=== PATIENT | female | born 1940 | race Asian ===

== ENCOUNTER 2023-01-13 12:50 | Day surgery (SDC) | payer MEDICARE, OTHER, SELFPAY ==
--- NOTE | 2023-01-13 | PATH_ITS ---
[facility] Accession Number: [id number] No. of containers..03 Tissue . 01 Material submitted: . PART A: gastrointestinal site - GASTRIC POLYP PART B: stomach - ANTRUM PART C: rectum - RECTAL POLYP . 01 Diagnosis: A. Stomach, Polyp, Biopsy: Gastric hyperplastic polyp. No evidence of Helicobacter organisms on H/E stain. Negative for intestinal metaplasia. Negative for dysplasia and malignancy. . B. Stomach, Antrum, Biopsy: Antral mucosa with mild chronic gastritis. Negative for Helicobacter by immunohistochemistry. Negative for intestinal metaplasia. Negative for dysplasia and malignancy. . C. Rectum, Polyp, Biopsy: Hyperplastic polyp with features of mucosal prolapse. [facility] 01/19/2023 1856 Local . 01 Electronically signed: . Pat Humphries MD, Pathologist NPI- [id number] . 01 Gross description: . A. Received in formalin, labeled with the patient's name and , designated gastric polyp, and consists of four travis soft tissue fragments ranging from 0.3 cm to 0.7 cm in greatest dimension. Submitted entirely in cassette A1. B. Received in formalin, labeled with the patient's name and , designated antrum, and consists of a single travis soft tissue fragment measuring 0.6 cm in greatest dimension. Submitted entirely in cassette B1. C. Received in formalin, labeled with the patient's name and , designated rectal polyp, and consists of two travis soft tissue fragments measuring 0.2 cm each in greatest dimension. Submitted entirely in cassette C1. ([id number]) /[facility] 01/16/2023 1410 Local . 01 Microscopic: . A. An immunohistochemical stain was performed to evaluate for Helicobacter organisms and is negative. The control stain showed appropriate reactivity. . * This test was developed and its performance characteristics determined by [facility]. It has not been cleared or approved by the U.S. Food and Drug Administration. The FDA has determined that such clearance or approval is not necessary. This test is used for clinical purposes. It should not be regarded as investigational or for research. . 01 Pathologist provided ICD-10: R10.11, K62.1 . 01 CPT . 623137, 015774, 136902, [id number] Specimen Comment: A courtesy copy of this report has been sent to [phone] Performed at: 01 [facility] [address] [place] [address], [place], [place] [id number] MD Koby Powell MD Phone: [phone]
--- NOTE | 2023-01-13 13:23 | PM.HP.1 ---
History of Present Illness History of Present Illness Date Patient Seen: 01/13/23 Time Patient Seen: 13:23 Chief complaint: EGD & Colonoscopy Narrative: No significant changes since my office visit. The patient's confirms she is been off her Plavix x5 days and seems to be doing better from a bowel standpoint on the bowel regimen prescribed post clinic visit. She is still having the upper abdominal discomfort. Meds Home Medications and Allergies Allergies Allergy/AdvReac Type Severity Reaction Status Date / Time promethazine Allergy Verified 01/13/23 13:22 Review of Systems Review of Systems ROS: Yes All systems reviewed with the patient and are negative except as otherwise documented Exam Const General: cooperative HENMT Head: normal to inspection Eyes General: appearance normal, both eyes and all related structures Neck Neck: normal visual inspection Chest Chest: normal inspection of the chest Resp Effort & Inspection: normal respiratory effort Cardio Rate: regular rate GI Inspection: normal to inspection Skin General: no rashes or lesions noted Neuro General: patient alert and patient awake Extrem General: normal to inspection and no pedal edema Psych Appearance: grossly normal Assessment & Plan Assessment & Plan narrative: 82-year-old female with abdominal pain and altered bowel habit. EGD and colonoscopy are pursued today.
--- NOTE | 2023-01-13 13:24 | PM.PREOP ---
Pre-operative Note Interval Note History & Physical reviewed/Exam performed by Physician: Yes Changes to H&P: No ASA Class (for procedural sedation): III
[2023-01-13 13:28] VITALS: BMI 27.6
[2023-01-13] MEDS: LACTATED RINGERS 1,000 ML 42 ML IV (13:43)
[2023-01-13 14:55] VITALS: BP 94/60; PULSE 62; RESP 15; TEMP 36; O2SAT 90
--- NOTE | 2023-01-13 14:55 | PM.OP.EC ---
Operative Date/Time/Diagnoses Date of procedure: 01/13/23 Time of procedure: 14:55 Pre-op diagnosis: Abdominal pain and change in bowel habits Post-op diagnosis: same Procedure & Clinicians Study performed: EGD with hot snare polypectomy and biopsies plus colonoscopy with biopsies. Same procedure as scheduled: Yes Indications: Abdominal pain and change in bowel habits. Surgeon: Gabriele Norwood Procedure Notes SCOAP/Timeout: Done Procedure in detail: After the risks and benefits were explained, written and verbal informed consent was obtained. The patient was brought into the procedure room and placed into the left lateral decubitus position. Please see anesthesia notes for sedation details. The scope was introduced into the mouth through the bite block and advanced under direct visualization to the 2nd portion of the duodenum. The scope was slowly withdrawn carefully examining the mucosa for any defects or lesions. Retroflexed views were accomplished in the stomach. The stomach was decompressed, the scope was then removed from the patient who tolerated the procedure well. The patient was then turned around. A digital rectal examination was accomplished. The scope was introduced into the rectum and advanced to the cecum as identified by the appendiceal orifice and ileocecal valve. The scope was slowly withdrawn to carefully examine the mucosa for any defects or lesions. Multiple direct views were made through the dentate line for exclusion of pathology. Colon was decompressed. The scope was removed from the patient who tolerated the procedure well. Pediatric colonoscope Bowel prep adequate Scope withdrawal time: 16 minutes Sedation minutes: 51 Complications: none Impression: 1. Duodenum this was visually normal from the bulb through to the 2nd portion. 2. Stomach: Minimal gastropathy. Antral biopsy was acquired for exclusion of H pylori. Otherwise retroflexed views of the LES were unremarkable. There were a couple of erythematous 6-7 mm sessile polyps in the gastric body which were removed with hot snare. The smaller of the 2 polyps required additional hot biopsy removal of residual polyp material that had been left after the original snare. No additional significant pathology in the stomach. 3. Esophagus: The squamocolumnar junction correlated with the top of the gastric folds. The Z-line was a little variable but there was no evidence of any stricturing no nodularity no acute inflammation. No neoplastic features identified. 4. Colon: Patient had a fairly challenging navigation and the right colon was extremely tortuous. The patient appeared to have grade 3 nonthrombosed non bleeding hemorrhoids. On direct views in the anorectum the largest hemorrhoidal cushion appeared to have some polypoid features that were slightly eroded on its surface and therefore I felt obligated to biopsy this location to exclude any adenomatous change. Endoscopic diagnosis 1. Gastric polyps 2. Minimal gastropathy 3. Tortuous right colon 4. Grade 3 hemorrhoids 5. Rectal polyp Post-procedure Plan for aftercare: 1. Await histopathology. 2. Continue bowel regimen for soft regular stools. 3. Okay to resume Plavix in 2 days time. 4. Follow up GI clinic Disposition: PACU
[2023-01-13 14:59] VITALS: BP 98/64; PULSE 60; RESP 15; O2SAT 90
[2023-01-13 15:04] VITALS: BP 104/68; PULSE 58; RESP 15; O2SAT 93
[2023-01-13 15:09] VITALS: BP 125/94; PULSE 58; RESP 15; O2SAT 96
[2023-01-13 15:14] VITALS: BP 138/89; PULSE 61; RESP 18; O2SAT 90
[2023-01-13 15:23] VITALS: BP 136/86; PULSE 58; RESP 16; O2SAT 90
== END 2023-01-13 15:49 | disposition home or self-care (01) ==
PROVIDERS: PCP Physician Assistant; Referring Provider Internal Medicine Gastroenterology; Visit Provider Internal Medicine Gastroenterology
PROC: 0DJ08ZZ Inspection of Upper Intestinal Tract, Via Natural or Artificial Opening Endoscopic (ICD-10-PCS; CPT 43235; principal; 2023-01-13 14:00)
PROC: 0DJD8ZZ Inspection of Lower Intestinal Tract, Via Natural or Artificial Opening Endoscopic (ICD-10-PCS; CPT 45378; 2023-01-13 14:00)
DX: K29.50 Unspecified chronic gastritis without bleeding (principal); R19.4 Change in bowel habit; K64.2 Third degree hemorrhoids; K31.9 Disease of stomach and duodenum, unspecified; K31.7 Polyp of stomach and duodenum; K62.1 Rectal polyp
CPT/HCPCS: 43250; 45380; J2704